=== PATIENT | female | born 1935 | race Caucasian/White ===

== ENCOUNTER 2018-05-31 09:34 | Emergency (ER) | payer MEDICARE, MEDICAID ==
[2018-05-31 09:47] VITALS: BMI 27.4
[2018-05-31 09:56] VITALS: RESP 18
[2018-05-31 11:18] LABS: BASO % 0.3 % (0.0-2.0); EOS # 0.2 K/uL (0.0-0.7); EOS % 2.7 % (0.0-4.0); HEMOGLOBIN 12.4 g/dL (11.0-16.0); LYMPH # 1.5 K/uL (1.0-4.3); LYMPH % 23.8 % (20.0-40.0); MEAN CELL VOLUME 91.7 fL (81.0-99.0); MEAN CORPUSCULAR HEMOGLOBIN 30.8 pg (27.0-31.0); MEAN CORPUSCULAR HGB CONC 33.6 g/dL (33.0-37.0); MEAN PLATELET VOLUME 8.4 fL (7.2-11.7); MONO # 0.5 K/uL (0.0-0.8); MONO % 7.3 % (0.0-10.0); NEUT # 4.2 K/uL (1.8-7.0); NEUT % 65.9 % (50.0-75.0); RBC 4.03 Mil/uL (3.80-5.20); RED CELL DISTRIBUTION WIDTH 14.4 % (11.5-14.5); WHITE BLOOD COUNT 6.4 K/uL (4.8-10.8)
--- NOTE | 2018-05-31 11:22 | C.PDOC ---
History Of Present Illness 82 y/o female presents to the ED complaining of left-sided low back pain when coughing, since 1 week ago. She reports the back pain worsens with bending movements. Cough is non-productive. She denies any fall or blunt trauma. No rece nt heavy lifting. Patient admits to occasional burning on urination. She denies any fevers, chills, SOB, chest pain, hematuria, urinary incontinence, numbness, tingling, or extremity weakness. Patient is ambulatory with pain. Time Seen by Provider: 05/31/18 10:06 Chief Complaint (Nursing): Back Pain History Per: Patient History/Exam Limitations: no limitations Onset/Duration Of Symptoms: Days Current Symptoms Are (Timing): Still Present Associated Symptoms: denies: Incontinence, New Weakness, New Numbness Exacerbating Factor(s): Sitting, Standing Recent travel outside of the [place]: No Past Medical History Reviewed: Historical Data, Nursing Documentation, Vital Signs Vital Signs: Last Vital Signs Temp 97.9 F 05/31/18 09:47 Pulse 75 05/31/18 09:47 Resp 18 05/31/18 09:47 BP 119/73 05/31/18 09:47 Pulse Ox 97 05/31/18 09:47 - Medical History PMH: Denies: Chronic Kidney Disease Other Surgeries: Right shoulder surgery - [facility] Procedures REPLACE OF R SHOULDER JT WITH REV BL & SOCKT, OPEN APPROACH (12/13/15) REPOSITION RIGHT HUMERAL SHAFT WITH INT FIX, OPEN APPROACH (12/13/15) Family History: States: Unknown Family Hx - Social History Hx Tobacco Use: No Hx Alcohol Use: No Hx Substance Use: No - Immunization History Hx Tetanus Toxoid Vaccination: No Hx Influenza Vaccination: No Hx Pneumococcal Vaccination: No Review Of Systems Except As Marked, All Systems Reviewed And Found Negative. Constitutional: Negative for: Fever, Chills Cardiovascular: Negative for: Chest Pain Respiratory: Positive for: Cough. Negative for: Shortness of Breath, Wheezing Gastrointestinal: Negative for: Nausea, Vomiting, Diarrhea Genitourinary: Positive for: Dysuria. Negative for: Frequency, Incontinence, Hematuria Musculoskeletal: Positive for: Back Pain Neurological: Negative for: Weakness, Numbness, Incoordination Physical Exam - Physical Exam Appears: Non-toxic, No Acute Distress Skin: Normal Color, Warm, Dry Head: Atraumatic, Normacephalic Eye(s): bilateral: Normal Inspection, PERRL, EOMI Oral Mucosa: Moist Neck: Normal ROM, Supple Chest: Symmetrical Cardiovascular: Rhythm Regular, No Murmur Respiratory: Normal Breath Sounds, No Rales, No Rhonchi, No Wheezing Gastrointestinal/Abdominal: Soft, No Tenderness, No Distention Back: No CVA Tenderness, No Vertebral Tenderness, Paraspinal Tenderness (Left paralumbar tenderness) Extremity: Bilateral: Atraumatic, Normal Color And Temperature, Normal ROM Pulses: Left Dorsalis Pedis: Normal, Right Dorsalis Pedis: Normal Neurological/Psych: Oriented x3, Normal Speech ED Course And Treatment - Laboratory Results Result Diagrams: 05/31/18 11:09 05/31/18 11:09 O2 Sat by Pulse Oximetry: 97 (RA) Pulse Ox Interpretation: Normal Progress Note: Labs are WNLS, UA is (+) for UTI, CXR is NAD at this time. Medical Decision Making Medical Decision Making: Initial Plan: --CMP --Lipase --CBC --UA --Urine culture --Chest x-ray --Pepcid 20 mg IVP --Toradol 15 mg IVP On re-exam, the patient reports improvement of symptoms. Lungs are CTA, heart is RRR, abdomen is soft, non-tender and tolerating PO well. Patient is ambulatory in the ED with steady gait. Follow up with the medical doctor within 1-2 days, Return if worsened, Disposition - Disposition Referrals: Sariah Chery MD [Staff Provider] - Disposition: HOME/ ROUTINE Disposition Time: 12:29 Condition: STABLE Additional Instructions: Follow up with the medical doctor within 1-2 days, Return if worsened, Prescriptions: Ciprofloxacin [Cipro] 1 tab PO BID #14 tab Phenazopyridine HCl [Pyridium] 200 mg PO TID #7 tablet Instructions: Urinary Tract Infections in Adults Forms: [employer] ([place]) - Clinical Impression Clinical Impression: UTI (urinary tract infection), Low back pain - PA / [employer] / Resident Statement MD/DO has reviewed & agrees with the documentation as recorded. - Scribe Statement The provider has reviewed the documentation as recorded by the Angelyibpreeti Winter All medical record entries made by the Scribe were at my direction and personally dictated by me. I have reviewed the chart and agree that the record accurately reflects my personal performance of the history, physical exam, medical decision making, and the department course for this patient. I have also personally directed, reviewed, and agree with the discharge instructions and disposition.
[2018-05-31 11:28] LABS: ALB/GLOB RATIO 0.9 (1.0-2.1); ALBUMIN 3.9 g/dL (3.5-5.0); ALT/SGPT 18 U/L (9-52); AST/SGOT 21 U/L (14-36); BLOOD UREA NITROGEN 20 mg/dL (7-17); CALCIUM 8.9 mg/dl (8.6-10.4); GFR NON-AFRICAN AMERICAN > 60; LIPASE 45 U/L (23-300)
[2018-05-31 11:49] LABS: SQUAMOUS EPITHIAL 6 /hpf (0-5); URINE BACTERIA RARE (<OCC); URINE BILIRUBIN NEGATIVE (NEGATIVE); URINE BLOOD 1+ (NEGATIVE); URINE CLARITY Hazy (Clear); URINE COLOR Yellow (YELLOW); URINE GLUCOSE (UA) NORMAL (Normal); URINE LEUKOCYTE ESTERASE 3+ Leu/uL (Negative); URINE PROTEIN NEGATIVE (NEGATIVE); URINE UROBILINOGEN NORMAL mg/dL (0.2-1.0)
[2018-05-31 12:14] VITALS: TEMP 98.1
--- NOTE | 2018-05-31 12:44 | RAD ---
Chest x-ray single frontal view HISTORY: Back pain. Cough. Comparison: 12/12/2015 Findings: Moderate venous congestion. Patchy consolidative changes in the right hilar region and left lung base. Enlarged ectatic aorta. Cardiomegaly. Degenerative changes in the spine and shoulders. Atherosclerotic calcification at the aortic knob. Upper lobe granulomatous changes. Postsurgical changes of the right proximal humerus. Impression: Moderate venous congestion. Patchy consolidative changes in the right hilar region and left lung base. Enlarged ectatic aorta. Cardiomegaly. Degenerative changes in the spine and shoulders. Atherosclerotic calcification at the aortic knob. Upper lobe granulomatous changes. Postsurgical changes of the right proximal humerus.
[2018-05-31 13:23] VITALS: BP 171/80; PULSE 72; O2SAT 98
== END 2018-05-31 13:23 | disposition home or self-care (01) ==
LOC: C.ER 09:34
DX: N39.0 Urinary tract infection, site not specified (principal); M54.5 Low back pain
CPT/HCPCS: 71045; 80053; 81001; 83690; 85025; 87086; 87181; 96374; 96375; 99285; J1885